=== PATIENT | male | born 1955 | race Caucasian/White ===

== ENCOUNTER 2019-05-12 15:06 | Emergency (ER) | payer OTHER, MEDICAID ==
[~2019-05-12] VITALS: Ht 182.9 cm; Wt 81.6 kg
[2019-05-12 15:20] VITALS: BP_SYST 137
--- NOTE | 2019-05-12 15:25 | NUR ---
Patient to ER bed 5 to gown for evaluation. Side rails up. Report given to
--- NOTE | 2019-05-12 15:32 | NUR ---
Patient is awake, alert, and oriented x4. Patient was sent by [facility] for medical clearance to [facility]. Patient has no complaints at this time.
--- NOTE | 2019-05-12 15:40 | NUR ---
ER Dr. Gleason at bedside examining patient.
[2019-05-12 15:56] LABS: BASOPHILS # (AUTO) 0.1 K/uL (0.0-0.2); BASOPHILS % (AUTO) 0.8 % (0.0-2.0); EOSINOPHILS # (AUTO) 0.4 K/uL (0.0-0.4); EOSINOPHILS % (AUTO) 4.9 % (0.0-4.0); HEMATOCRIT 31.8 % (36-54); HEMOGLOBIN 11.2 g/dL (14.0-18.0); LYMPHOCYTES # (AUTO) 1.9 K/uL (1.0-5.5); LYMPHOCYTES % (AUTO) 25.2 % (20.5-51.5); MEAN CORPUSCULAR HEMOGLOBIN 31 pg (27-31); MEAN CORPUSCULAR HGB CONC 35 % (32-36); MEAN CORPUSCULAR VOLUME 88 fL (79.0-98.0); MONOCYTES # (AUTO) 0.6 K/uL (0.0-1.0); MONOCYTES % (AUTO) 7.9 % (1.7-9.3); NEUTROPHILS # (AUTO) 4.6 K/uL (1.8-7.7); NEUTROPHILS % (AUTO) 61.2 % (40.0-70.0); PLATELET COUNT (AUTO) 191 K/uL (130-430); RED BLOOD CELL COUNT(AUTO) 3.63 MIL/uL (4.2-6.2); RED CELL DISTRIBUTION WIDTH 14.3 % (9.0-15.0); WHITE BLOOD COUNT (AUTO) 7.4 K/uL (4.8-10.8)
[2019-05-12 16:07] LABS: ANION GAP 6 (5-15); CALCIUM 9.4 mg/dL (8.4-11.0); CHLORIDE 102 mmol/L (98-107); CREATININE 1.41 mg/dL (0.55-1.30); GLUCOSE 164 mg/dL (70-99); POTASSIUM 5.3 mmol/L (3.5-5.1); SODIUM SERUM 134 mmol/L (136-145); UREA NITROGEN, BLOOD 33 mg/dL (8-21)
[2019-05-12 16:15] LABS: GFR AFRICAN AMERICAN 65 mL/min (>90)
[2019-05-12 16:21] LABS: ALANINE AMINOTRANSFERASE 40 U/L (12-78); ALBUMIN 3.4 g/dL (3.4-4.8); ASPARTATE AMINOTRANSFERASE 25 U/L (10-37); TOTAL BILIRUBIN 0.3 mg/dL (0.0-1.0)
[2019-05-12 16:22] LABS: ACETAMINOPHEN < 1 ug/mL (1-30); ALCOHOL, BLOOD < 3 mg/dL (<10)
[2019-05-12] MEDS: SODIUM POLYSTYRENE SULFONATE 15 GM/60 ML UDBTL PO ONE (16:56)
[2019-05-12] MEDS: NS 500 ML IV ONE (16:57)
[2019-05-12 17:19] LABS: BARBITURATE, URINE NEGATIVE (NEG <=200); BENZODIAZEPINE, URINE NEGATIVE (NEG <=150); BILIRUBIN,URINE NEGATIVE (NEGATIVE); BLOOD, URINE NEGATIVE (NEGATIVE); CANNABINOID, URINE NEGATIVE (NEG <=50); CLARITY/URINE CLEAR (CLEAR); COCAINE, URINE NEGATIVE (NEG <=150); COLOR,URINE YELLOW (YELLOW); GLUCOSE,URINE NEGATIVE (NEGATIVE); KETONES,URINE NEGATIVE (NEGATIVE); LEUKOCYTE ESTERASE ,URINE NEGATIVE (NEGATIVE); METHAMPHETAMINES SCREEN,URINE NEGATIVE (NEG <=500); NITRITE, URINE NEGATIVE (NEGATIVE); OPIATE, URINE NEGATIVE (NEG <=100); PH,URINE 5.5 (5.0-8.0); PHENCYCLIDINE SCREEN,URINE NEGATIVE (NEG <=25); PROTEIN URINE NEGATIVE (NEGATIVE); UR TRICYCLIC ANTIDEPRESSANTS POSITIVE (NEG <=300); URINE AMPHETAMINE NEGATIVE (NEG <=500); URINE METHADONE NEGATIVE (NEG <=200); URINE OXYCODONE SCREEN NEGATIVE (NEG <=100); URINE PROPOXYPHENE SCREEN NEGATIVE (NEG <=300); UROBILINOGEN,URINE 0.2 (0.2-1.0)
[2019-05-12] MEDS: hydrALAZINE HCL 20 MG/ML VIAL IVP ONE (17:41)
--- NOTE | 2019-05-12 18:04 | NUR ---
Evgeny Norman notified that patient has been cleared.
--- NOTE | 2019-05-12 18:10 | NUR ---
report given to Charles Norman. Pt will be going to room 53-a
--- NOTE | 2019-05-12 18:49 | NUR ---
Patient to be transferred to [facility]. Is being transferred due to higher level of care. Receiving facility has accepting physician and available space. ER physician has signed transfer form. Patient or responsible alliance party has agreed to transfer and signed form. Patient belongings inventoried and will be sent with patient. Copy of nursing notes, lab reports, EKG, Physicians Orders and X-rays to be sent with patient. Report called to Waqas at receiving facility. Receiving physician is Dr. Sun. [facility] for transfer. ETA is now .
[2019-05-12 18:50] VITALS: BP_SYST 145
[2019-05-13 13:58] LABS: CHOLESTEROL 106 mg/dL (<200); HDL CHOLESTEROL 41 mg/dL (>45); LDL CHOLESTEROL 54 mg/dL (<100); TRIGLYCERIDES 118 mg/dL (30-150)
== END 2019-05-12 18:50 ==
LOC: SED 15:06
DX: R06.02 Shortness of breath (principal); Z02.89 Encounter for other administrative examinations; F32.9 Major depressive disorder, single episode, unspecified; F20.0 Paranoid schizophrenia; I11.0 Hypertensive heart disease with heart failure; I50.9 Heart failure, unspecified; E11.9 Type 2 diabetes mellitus without complications
CPT/HCPCS: 36415; 80053; 80061; 80307; 81003; 82962; 83036; 83880; 85025; 87081; 93005; 96374; 99285; G0480; G0481; G0482; J0360; J7040

== ENCOUNTER 2019-05-13 13:37 | Outpatient (CLI) | payer OTHER | END 2019-05-13 21:15 | disposition home or self-care (01) | LOC: SLB 13:37 | PROVIDERS: ATTEND Psychiatry & Neurology Psychiatry | DX: Z00.00 Encounter for general adult medical examination without abnormal findings (principal) | CPT/HCPCS: 87081 ==

== ENCOUNTER 2020-11-03 18:20 | Emergency (ER) | payer OTHER, MEDICAID, SELFPAY ==
[~2020-11-03] VITALS: Ht 172.7 cm; Wt 81.6 kg
--- NOTE | 2020-11-03 18:20 | NUR ---
Patient to ER bed 6 to gown for evaluation. Side rails up. Report given to Catie RUIZ.
[2020-11-03 18:32] VITALS: BP_SYST 134
--- NOTE | 2020-11-03 18:39 | NUR ---
PT BRITTON FROM [facility] FOR MEDICAL CLEARANCE FOR TRANSFER TO [facility]. PT HAS BEEN INCREASINGLY AGRESSIVE TOWARDS STAFF. PT PRESENTS AOX2, V/S STABLE
--- NOTE | 2020-11-03 18:47 | NUR ---
LAB AT THE BEDSIDE FOR BLOOD DRAW
--- NOTE | 2020-11-03 18:49 | NUR ---
ER DR. WARD AT THE BEDSIDE EXAMINING PT
[2020-11-03 18:57] LABS: BASOPHILS # (AUTO) 0.1 K/uL (0.0-0.2); BASOPHILS % (AUTO) 0.6 % (0.0-2.0); EOSINOPHILS # (AUTO) 0.2 K/uL (0.0-0.4); EOSINOPHILS % (AUTO) 2.3 % (0.0-4.0); HEMATOCRIT 29.3 % (36-54); HEMOGLOBIN 10.1 g/dL (14.0-18.0); LYMPHOCYTES # (AUTO) 1.4 K/uL (1.0-5.5); LYMPHOCYTES % (AUTO) 16.3 % (20.5-51.5); MEAN CORPUSCULAR HEMOGLOBIN 29 pg (27-31); MEAN CORPUSCULAR HGB CONC 35 % (32-36); MEAN CORPUSCULAR VOLUME 85 fL (79.0-98.0); MONOCYTES # (AUTO) 0.5 K/uL (0.0-1.0); MONOCYTES % (AUTO) 5.8 % (1.7-9.3); NEUTROPHILS # (AUTO) 6.3 K/uL (1.8-7.7); PLATELET COUNT (AUTO) 203 K/uL (130-430); RED BLOOD CELL COUNT(AUTO) 3.44 MIL/uL (4.2-6.2); RED CELL DISTRIBUTION WIDTH 15.8 % (9.0-15.0); WHITE BLOOD COUNT (AUTO) 8.3 K/uL (4.8-10.8)
--- NOTE | 2020-11-03 19:13 | NUR ---
REPORT GIVEN TO JOSEPH MCDONNELL FOR CONTINUING CARE
[2020-11-03 19:15] LABS: ANION GAP 9 (5-15); CALCIUM 8.6 mg/dL (8.4-11.0); CHLORIDE 109 mmol/L (98-107); CREATININE 1.78 mg/dL (0.55-1.30); GLUCOSE 101 mg/dL (70-99); POTASSIUM 4.1 mmol/L (3.5-5.1); SODIUM SERUM 142 mmol/L (136-145); UREA NITROGEN, BLOOD 30 mg/dL (8-21)
--- NOTE | 2020-11-03 19:16 | NUR ---
Blood for labwork drawn from [employer]. Patient tolerated well.
[2020-11-03 19:17] LABS: GFR AFRICAN AMERICAN 49 mL/min (>90)
--- NOTE | 2020-11-03 19:17 | NUR ---
Swabs COVID-19 and MRSA and send to lab
--- NOTE | 2020-11-03 19:20 | NUR ---
# 16 FR In and Out catheter with use of sterile technique. Immediate return of 20 ml Brook, clear urine noted. Urine sample collected and sent to lab. Pt tolerated procedure well. Patient unable to toilet self.
[2020-11-03 19:21] LABS: ALANINE AMINOTRANSFERASE 24 U/L (12-78); ALBUMIN 3.1 g/dL (3.4-4.8); ALCOHOL, BLOOD 3 mg/dL (<10); ASPARTATE AMINOTRANSFERASE 30 U/L (10-37); TOTAL BILIRUBIN 0.5 mg/dL (0.0-1.0)
[2020-11-03 19:22] LABS: ACETAMINOPHEN < 1 ug/mL (1-30)
[2020-11-03 19:29] LABS: BILIRUBIN,URINE NEGATIVE (NEGATIVE); BLOOD, URINE NEGATIVE (NEGATIVE); COLOR,URINE YELLOW (YELLOW); GLUCOSE,URINE NEGATIVE (NEGATIVE); KETONES,URINE NEGATIVE (NEGATIVE); LEUKOCYTE ESTERASE ,URINE NEGATIVE (NEGATIVE); NITRITE, URINE NEGATIVE (NEGATIVE); PH,URINE 5.5 (5.0-8.0); PROTEIN URINE 1+ (NEGATIVE); UROBILINOGEN,URINE 0.2 (0.2-1.0)
[2020-11-03 19:34] LABS: CLARITY/URINE SLIGHTLY HAZY (CLEAR)
[2020-11-03 19:45] LABS: BACTERIA,URINE FEW /HPF (None Seen); COARSE GRANULAR CASTS,URINE 0-10 /LPF (None Seen); RBC,URINE NONE SEEN /HPF (0-3); WBC,URINE NONE SEEN /HPF (0-3)
[2020-11-03 19:47] LABS: BARBITURATE, URINE NEGATIVE (NEG <=200); BENZODIAZEPINE, URINE POSITIVE (NEG <=150); CANNABINOID, URINE NEGATIVE (NEG <=50); COCAINE, URINE NEGATIVE (NEG <=150); METHAMPHETAMINES SCREEN,URINE NEGATIVE (NEG <=500); UR TRICYCLIC ANTIDEPRESSANTS POSITIVE (NEG <=300); URINE AMPHETAMINE NEGATIVE (NEG <=500); URINE METHADONE NEGATIVE (NEG <=200)
[2020-11-03 19:48] LABS: OPIATE, URINE NEGATIVE (NEG <=100); PHENCYCLIDINE SCREEN,URINE NEGATIVE (NEG <=25); URINE OXYCODONE SCREEN NEGATIVE (NEG <=100); URINE PROPOXYPHENE SCREEN NEGATIVE (NEG <=300)
[2020-11-03 19:57] LABS: TRIGLYCERIDES 116 mg/dL (30-150)
[2020-11-03 19:58] LABS: CHOLESTEROL 116 mg/dL (<200); HDL CHOLESTEROL 62 mg/dL (>45); LDL CHOLESTEROL 47 mg/dL (<100)
--- NOTE | 2020-11-03 20:29 | NUR ---
Patient to be transferred to [facility]. Is being transferred due to higher level of care. Receiving facility has accepting physician and available space. ER physician has signed transfer form. Patient or responsible democrat has agreed to transfer and signed form. Patient belongings inventoried and will be sent with patient. Copy of nursing notes, lab reports, EKG, Physicians Orders and X-rays to be sent with patient. Report called to JOSEPH King at receiving facility. Receiving physician is Dr. Lr. [facility] ambulance service has been called for transfer. ETA is 1 hour.
[2020-11-03 22:26] VITALS: BP_SYST 125
--- NOTE | 2020-11-03 22:26 | NUR ---
Patient will transfer to [facility] via [facility].
== END 2020-11-03 22:26 | disposition home or self-care (01) ==
LOC: SED 18:20
DX: F29 Unspecified psychosis not due to a substance or known physiological condition (principal); I11.0 Hypertensive heart disease with heart failure; I50.9 Heart failure, unspecified; E11.9 Type 2 diabetes mellitus without complications; F20.9 Schizophrenia, unspecified; F32.9 Major depressive disorder, single episode, unspecified; Z86.2 Personal history of diseases of the blood and blood-forming organs and certain disorders involving the immune mechanism; Z20.822 Contact with and (suspected) exposure to COVID-19
CPT/HCPCS: 36415; 80053; 80061; 80307; 81000; 82140; 83036; 85025; 87081; 87426; 99285; G0480; G0481; G0482